=== PATIENT | male | born 1970 | race African-American/Black ===

== ENCOUNTER 2017-06-20 21:27 | Emergency (ER) | payer BC ==
[2017-06-20 22:37] LABS: BASOPHILS 0.2 % (0-2); EOSINOPHILS 5.3 % (0-7); HEMATOCRIT 39.4 % (42.0-54.0); HEMOGLOBIN 12.7 g/dL (13.5-17.5); IMMATURE GRANULOCYTES 0.2 % (0-5); LYMPHOCYTES 34.6 % (15-50); MCH 27.5 pg (26.0-34.0); MCHC 32.2 g/dL (31.0-37.0); MCV 85.3 fL (80.0-100.0); MEAN PLATELET VOLUME 10.5 fL (7.4-10.4); MONOCYTES 8.1 % (2-11); NEUTROPHILS 51.6 % (40-80); PLATELET COUNT 206 10x3/uL (130-400); RBC 4.62 10x6/uL (4.20-6.10); RDW 13.2 % (11.5-14.5); WBC 8.5 10x3/uL (4.8-10.8)
[2017-06-20 22:55] LABS: ALKALINE PHOSPHATASE 67 U/L (46-116); ALT (SGPT) 30 U/L (10-68); BILIRUBIN - TOTAL 0.52 mg/dL (0.2-1.3); CALC OSMOLALITY 282 mosm/kg (275-300); CALCIUM 9.1 mg/dL (8.5-10.1); CHLORIDE - SERUM 102 mmol/L (98-107); CREATININE - SERUM 1.5 mg/dL (0.6-1.3); GLUCOSE 100 mg/dL (74-106); POTASSIUM - SERUM 3.8 mmol/L (3.5-5.1); SODIUM 140 mmol/L (136-145); UREA NITROGEN 25 mg/dL (7-18); eGFR NON AFRICAN AMERICAN 54 mL/min (90-120)
[2017-06-20 23:03] LABS: CHOL - HDL RATIO 3.9 ratio (2.3-4.9); CHOLESTEROL, TOTAL 195 mg/dL (0-200); CKMB 1.1 U/L (0.0-3.6); CREATINE KINASE 375 UL (21-232); HDL CHOLESTEROL 50 mg/dL (32-96); LDL CHOLESTEROL 122 mg/dL (0-100); LDL-HDL RATIO 2.4 ratio (1.5-3.5); TRIGLYCERIDE 115 mg/dL (30-200); TROPONIN-I < 0.017 ng/mL (0.000-0.060)
== END 2017-06-20 23:57 | disposition home or self-care (01) ==
LOC: D.ER 21:27
PROVIDERS: Emergency Medicine
DX: R07.9 Chest pain, unspecified (principal); J45.909 Unspecified asthma, uncomplicated